=== PATIENT | female | born 1980 | race Caucasian/White ===

== ENCOUNTER 2018-09-07 19:01 | Emergency (ER) | payer OTHER ==
--- NOTE | 2018-09-07 19:27 | ERPHSYRPT ---
- History of Present Illness Time Seen by Provider: 09/07/18 19:15 Source: patient Exam Limitations: no limitations Physician History: 37 y/o white female with know left carotid a aneurysm presents with 4 day h/o headache, vision left eye blurred. there is associated vomiting. pt also with left ankle pain after twisting it 3 days ago. pt fx left ankle and recently had cast removed. pt just moved to [place] from [place]. Timing/Duration: day(s) (4) Quality: aching Head Pain Location: global Severity of Pain-Max: moderate Severity of Pain-Current: moderate Recent Head Trauma: no recent headache/trauma, occasional headaches Associated Symptoms: nausea/vomiting, No confusion, No dizziness, No fatigue, No facial pain, No fever/chills, No flushing, No light-headedness, No loss of consciousness Previous symptoms: same symptoms as today Allergies/Adverse Reactions: amoxicillin Allergy (Verified 09/07/18 19:24) ketorolac [From Toradol] Allergy (Verified 09/07/18 19:24) metoclopramide [From Reglan] Allergy (Verified 09/07/18 19:24) prochlorperazine [From Compazine] Allergy (Verified 09/07/18 19:24) Home Medications: Escitalopram Oxalate [Lexapro] 20 mg PO QAM 09/07/18 [History] Naproxen 500 mg [Naprosyn 500 MG] 500 mg PO BID 09/07/18 [History] Olanzapine [Zyprexa] 2.5 mg PO HS 09/07/18 [History] - Review of Systems Constitutional: No Symptoms Eyes: No Symptoms Ears, Nose, & Throat: No Symptoms Respiratory: No Symptoms Cardiac: No Symptoms Abdominal/Gastrointestinal: No Symptoms Genitourinary Symptoms: No Symptoms Musculoskeletal: Other (left ankle pain) Neurological: Headache Psychological: No Symptoms Endocrine: No Symptoms Hematologic/Lymphatic: No Symptoms Immunological/Allergic: No Symptoms All Other Systems: Reviewed and Negative - Past Medical History Pertinent Past Medical History: Yes Neurological History: No Pertinent History ENT History: No Pertinent History Cardiac History: No Pertinent History Respiratory History: No Pertinent History Endocrine Medical History: No Pertinent History Musculoskeletal History: No Pertinent History GI Medical History: No Pertinent History History: No Pertinent History Psycho-Social History: No Pertinent History Female Reproductive Disorders: No Pertinent History Other Medical History: migraine headaches - Past Surgical History Neuro Surgical History: No Pertinent History Cardiac: No Pertinent History Respiratory: No Pertinent History Gastrointestinal: No Pertinent History Genitourinary: No Pertinent History Musculoskeletal: No Pertinent History Female Surgical History: No Pertinent History - Nursing Vital Signs Nursing Vital Signs: Initial Vital Signs Temperature 98.6 F 09/07/18 19:07 Pulse Rate 88 09/07/18 19:07 Respiratory Rate 20 09/07/18 19:07 Blood Pressure 135/92 09/07/18 19:07 O2 Sat by Pulse Oximetry 99 09/07/18 19:07 Pain Scale Pain Intensity 9 - Physical Exam General Appearance: no apparent distress, alert, anxiety Eye Exam: PERRL/EOMI Ears, Nose, Throat Exam: normal ENT inspection, TMs normal, moist mucous membranes Neck Exam: normal inspection, non-tender, supple, full range of motion Respiratory Exam: normal breath sounds, lungs clear, airway intact, No chest tenderness, No respiratory distress, No accessory muscle use, No rhonchi, No wheezing, No stridor Cardiovascular Exam: regular rate/rhythm, normal heart sounds, normal peripheral pulses Gastrointestinal/Abdominal Exam: soft, normal bowel sounds, No tenderness, No guarding, No rebound Back Exam: normal inspection Extremity Exam: tenderness (mild left ankle ) Mental Status Exam: alert, oriented x 3, 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 Exam: normal hearing, normal speech, PERRL, tongue midline Coordination/Gait Exam: normal finger to nose, normal gait Motor/Sensory Exam: no motor deficit, no sensory deficit - Course Nursing assessment & vital signs reviewed: Yes Ordered Tests: Active Orders 24 hr Category Date Time Status ANKLE (3 VIEWS) Stat Exams 09/07/18 19:32 Taken HEAD WITHOUT CONTRAST [CT] Stat Exams 09/07/18 19:31 Taken Medication Summary Discontinued Medications Generic Name Dose Route Start Last Admin Trade Name Freq PRN Reason Stop Dose Admin Hydromorphone HCl 1 mg 09/07/18 19:33 09/07/18 20:01 Hydromorphone 1 Mg/Ml Ampule IV 09/07/18 19:34 Not Given STAT ONE Hydromorphone HCl Confirm 09/07/18 19:44 Hydromorphone 1 Mg/Ml Ampule Administered 09/07/18 19:45 Dose 1 mg .ROUTE .STK-MED ONE Hydromorphone HCl 1 mg 09/07/18 19:46 09/07/18 19:50 Hydromorphone 1 Mg/Ml Ampule IM 09/07/18 19:47 1 mg STAT ONE Administration Ondansetron HCl 4 mg 09/07/18 19:33 09/07/18 20:02 Zofran 4 Mg/2 Ml Vial IV 09/07/18 19:34 Not Given STAT ONE Ondansetron HCl Confirm 09/07/18 19:44 Zofran 4 Mg/2 Ml Vial Administered 09/07/18 19:45 Dose 4 mg .ROUTE .STK-MED ONE Ondansetron HCl 4 mg 09/07/18 19:45 09/07/18 19:50 Zofran 4 Mg/2 Ml Vial IM 09/07/18 19:46 4 mg STAT ONE Administration - Progress Progress: improved Air Movement: good Progress Note: 09/07/18 20:13 left ankle xray-no acute fx or dislocation 09/07/18 20:51 ct brain-no acute process Blood Culture(s) Obtained: No Antibiotics given: No Counseled pt/family regarding: diagnosis, need for follow-up, rad results - Departure Time of Disposition: 20:52 Departure Disposition: Home Clinical Impression: Headache, Ankle sprain Condition: Stable Critical Care Time: No Referrals: DOCTOR,NO FAMILY [Primary Care Provider] - Additional Instructions: follow up with your surgeon for furher management. ice pack to left ankle
[2018-09-07] MEDS ORDERED: Hydromorphone 1 mg/ml Ampule ONE (19:44)
[2018-09-07] MEDS ORDERED: Zofran 4 MG/2 ML VIAL ONE (19:44)
[2018-09-07] MEDS: Zofran 4 MG/2 ML VIAL IM ONE (19:50)
[2018-09-07] MEDS: Hydromorphone 1 mg/ml Ampule IM ONE (19:50)
[2018-09-07] MEDS: Hydromorphone 1 mg/ml Ampule IV ONE (20:01)
[2018-09-07] MEDS: Zofran 4 MG/2 ML VIAL IV ONE (20:02)
[2018-09-07 21:00] VITALS: BP 128/79; PULSE 82; O2SAT 98
--- NOTE | 2018-09-08 08:11 | XRAY ---
Indication: Pain. Comparison: None 3 views of the left ankle demonstrate small cuboid accessory ossicle. No other bony, articular, or soft tissue abnormalities.
--- NOTE | 2018-09-08 08:14 | XRAY ---
Indication: Headache. Known aneurysm. Multiple contiguous axial images obtained through the head without contrast. 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 No acute intracranial hemorrhage, abnormal extra-axial fluid collection, or mass effect. Fourth ventricle is midline without hydrocephalus. Henriquez-white matter differentiation preserved. Previous right parietal craniotomy. Remaining bony calvarium intact. Visualized paranasal sinuses and mastoid air cells are clear. Impression: 1. Left internal carotid artery calcified aneurysm and right parietal craniotomy. 2. No acute intracranial abnormalities. CTDI 70.31
== END 2018-09-07 21:01 | disposition home or self-care (01) ==
LOC: ED 19:01
DX: R51 Headache (principal); S93.402A Sprain of unspecified ligament of left ankle, initial encounter; X50.1XXA Overexertion from prolonged static or awkward postures, initial encounter; R11.2 Nausea with vomiting, unspecified; H53.8 Other visual disturbances; I72.8 Aneurysm of other specified arteries; Z79.899 Other long term (current) drug therapy
CPT/HCPCS: 70450; 73610; 96372; 99284; J1170; J2405